=== PATIENT | male | born 1930 | race Two or more races ===

== ENCOUNTER 2017-08-31 09:49 | Outpatient (CLI) | payer OTHER ==
[~2017-08-31 09:49] MED LIST: ASA-EC81 MG PO
== END 2017-08-31 10:01 | disposition home or self-care (01) ==
LOC: LAB 09:49
DX: E11.65 Type 2 diabetes mellitus with hyperglycemia (principal); E03.8 Other specified hypothyroidism; N40.0 Benign prostatic hyperplasia without lower urinary tract symptoms; D68.8 Other specified coagulation defects; E78.2 Mixed hyperlipidemia; Z12.11 Encounter for screening for malignant neoplasm of colon

== ENCOUNTER 2017-09-11 08:01 | Outpatient (CLI) | payer OTHER | END 2017-09-11 08:02 | disposition home or self-care (01) | LOC: LAB 08:01 | DX: E11.65 Type 2 diabetes mellitus with hyperglycemia (principal); E03.8 Other specified hypothyroidism; N40.0 Benign prostatic hyperplasia without lower urinary tract symptoms; D68.8 Other specified coagulation defects; E78.2 Mixed hyperlipidemia; Z12.11 Encounter for screening for malignant neoplasm of colon ==